=== PATIENT | male | born 1945 | race Caucasian/White ===

== ENCOUNTER 2016-08-03 06:47 | Inpatient (IN) | payer MEDICARE ==
--- NOTE | 2016-07-30 08:55 | PCM.ANEPRE ---
Anesthesia Pre-Op Review Reason for Review: FYI-HX 3 VESSEL CABG/AVR CONTINUES ON ASA & PLETAL Anesthesia Recommendations: Delay until Additional Data Obtain Additional Comments 71 yo M scheduled for R CEA with Dr. Husain for 80% stenosis. Significant cardiac history including CABG and AVR in 2008. Echo 12/06/2015 shows EF 60-65% with bioprosthetic aortic valve, mod to severe MR. Last seen by cardiology 04/23, at which time he was referred back to Dr. Husain regarding surgical consideration of carotid stenosis. Note at this time states "follow-up with cardiology clinic as need AND make an appointment prior to surgery". Per cardiology, patient needs to have follow-up appointment prior to surgery, will discuss with pre-op if this can be expedited given that surgery is currently scheduled for 08/03/2016. Chart Reviewed by: MD Jyothi Santa Jeffrey L MD Jul 30, 2016 08:55
[~2016-08-03] VITALS: Ht 177.8 cm; Wt 82.2 kg
[2016-08-03] VITALS (18 sets, daily range): BP systolic 104–147; BP diastolic 58–82; PULSE 67–109; RESP 12–18; O2SAT 92–97
[~2016-08-03 06:47] MED LIST: ASPI-973 PO; CILO50TA PO; CeFAZolin 2 Gm/50 mL D5W IV Premix IV ONE; LIP40 PO; LISI-567 PO; Lactated Ringer's 1,000 ML IV ONE; METO25TA6 PO; MULT-1018 PO; RANI150T11 PO; UBID1CAP59 PO; VARE0.5T PO
--- NOTE | 2016-08-03 06:56 | PCM.HPANE ---
Patient Data Surgeon Admitting Provider: Attending Provider:Moreno Husain MD Primary Care Physician:Rl Other Provider:Brady Marrero Anesthesia Reason for Visit Right Carotid Stenosis Ht/WT & BMI Height (Feet): 5 Height (Inches): 10 Weight (Kilograms): 79.832 Body Mass Index 25.00 Allergies Uncoded Allergies: MONTOYA POD (Allergy, Unknown, UNKNOWN, 07/29/16) BEE STINGS (Allergy, Unknown, UNKNOWN, 07/29/16) Past Anesthesia History Anesthesia History: Denies:: Anesthesia Reactions, Malignant Hyperthermia Diabetes History Hx Diabetes?: No MRSA MRSA: No Medications Blood Thinner: Aspirin Hypertension Medication: Yes (LISINOPRIL) Home Meds Incl Beta Fran: Yes (METOPROLOL) Reported Medications Ranitidine (Zantac)150 Mg [id number] Mg PO DAILY 07/29/16 Multivitamin (Multi Vitamin Daily)1 Each Tablet1 Each PO DAILY 30 Days Ref 0 07/29/16 Metoprolol Tartrate 25 Mg Usrmje60 Mg PO BID 30 Days Ref 0 07/29/16 Lisinopril 20 Mg Dsezfh12 Mg PO DAILY 30 Days Ref 0 07/29/16 Ubidecarenone/Vitamin E Mixed (Ahm13-Qpd E 200 mg-20 Unit Sfg)200 Mg-20 Unit Capsule1 Each PO DAILY 07/29/16 Cilostazol 50 Mg Fpaiem57 Mg PO BID 07/29/16 Varenicline Tartrate (Chantix)0.5 Mg Tablet0.5-1 Mg PO DIRECTED PRN SMOKING 07/29/16 Atorvastatin (Lipitor)40 Mg Fggmtn20 Mg PO BID Ref 0 07/29/16 Aspirin 81 Mg Pqplbd44 Mg PO DAILY Ref 0 07/29/16 Discontinued Reported Medications No Historical Medication Ea Ref 0 11/10/08 History History of ENT Problems?: No HEENT History: Positive for:: Hearing Problem Denies:: Cataracts Sinus Problem Hx of Heart Problems?: Yes Cardiovascular History: Positive for:: Atrial Fibrillation (HX OF) Cardiac Surgery (S/P HEART CATH 11/2008;S/P 3 VESSEL CABG & AVR 12/2008) Chest Pain Coronary Artery Disease Heart Murmur (GR II/ HARSH DEYANIRA @ [facility] W/ RADIATION ECHO 11/2015 EF 60-65%) Hypertension (HYPERLIPIDEMIA) Irregular Heartbeat (HX A FIB) Peripheral Vascular (PAD-LE'S; CAROTID STENOSIS) Valvular Heart Disease (MOD-SEVERE MR S/P AVR (BIOPROSTHETIC)) Other Cardiac History: BILAT CAROTID STENOSIS (80% OCCL,USION ON RT; 50% ON LT )=CURRENT PROBLEM Hx of Respiratory Problem?: No Respiratory History: Denies:: Use of C-PAP Machine Hx Neurologic Problems?: No Neurological History: Denies:: Alzheimer's Disease CVA Dementia Dizziness Headaches Parkinson's Disease Seizures Hx of GI Problems?: Yes Gastrointestinal History: Positive for:: Gastroesphageal Reflux Hx of Problems?: No Genitourinary History: Denies:: HX of Hemodialysis Kidney Stones Urinary Tract Infection HX of Peritoneal Dialysis: No Male Hx: Denies:: Prostate Problems Scrotal Mass Testicular Surgery Skin History: Denies:: History Skin Disorders? Pressure Ulcers Hx Musculoskeletal Problems?: Yes Musculoskeletal History: Positive for:: Back Injury (crushed disk 1972) Musculoskeletal Trauma (S/P BILAT SHOULDER RPR'S, CTR) Denies:: Joint Replacement Hx of Psycho/Social Problems?: No Psycho Social History: Denies:: Anxiety Bipolar Disorder Hx Depression Suicide Attempt Hx Surgeries?: Yes (BILAT SHOULDER RPR'S, CTR) Hx Any Other Health Problems?: Yes Other History: Positive for:: Hospitalization Denies:: Cancer Endocrine Disease Thyroid Disease History Blood Transfusions: Positive for:: Blood Transfusions Denies:: Blood Transfuse Reaction Hx Diabetes: No Hx Alcohol Use: YesAlcoholic Drinks Per Day: 3-6 BEERS/DAY (INCREASED STOPPED SMOKINGHx Substance Use: NoHave You Smoked inLast 12 mo: Yes (OCC E- CIG (RARE))Approx How Many Cigarettes/day: 40YR HX Stop/Bang S-Snoring: Do You Snore Loudly: No T-Tired: feel tired, fatigued: No O-Obsered: Observed not breath: No P-Blood Pressure: treated: Yes B- Body Mass Index > 35 kg/m2: No A- Age over 50: Yes N- Neck Large Circumference: No G- Gender Male: Yes SERENITY Total Score: 3 Risk Assessment Category Category 1A: Patient has history of documented sleep apnea, and HAS NOT received any narcotic, sedative or anesthesia administration during this stay. Category 1B: Patient has history of documented sleep apnea, and HAS received any narcotic , sedative or anesthesia administration during this stay Category 2: Patient has SUSPECTED Obstructive Sleep Apnea, and HAS received any narcotic , sedative or anesthesia administration during this stay. Category 3: Patient has SUSPECTED Obstructive Sleep Apnea and HAS NOT received narcotic, sedative or anesthesia administration during this stay. Category 4: Outpatient in Procedural Areas with known sleep apnea or who screen positive for High Risk via the STOP/BANG questionnaire. Exam Exam General Appearance: Alert, Oriented X3, Cooperative HEENT/AIRWAY: MP 2, Neck Movement (50% expectred ROM), Mouth Opening (wnl) Lungs: Clear to Auscultation Heart: Other (Prothetic AV, severe MR EF 65%) Plan Impression Patient chart reviewed, patient interviewed and anesthestic plan with risks, benefits, and alternatives discussed, and informed consent obtained. ASA Physical Status: ASA3 Severe Disease Anesthetic Support Modalities: Arterial Line Anesthetic Plan: GA Bene/Risks/Altern/Consents: Yes HP Complete Prior to Induction: Yes Max Chávez MD Aug 03, 2016 06:56
[2016-08-03] MEDS ORDERED: Lactated Ringer's 1,000 ML IV ONE ×2 (08:00→11:47)
[2016-08-03] MEDS ORDERED: Bupivacaine-MPF 0.5% W/EPI 30 mL Inj INFILTRATE ONE (10:48)
[2016-08-03] MEDS ORDERED: Heparin 1,000 Unit/mL 10 mL Inj IRRIGATION ONE (11:05)
[2016-08-03] MEDS ORDERED: EPHEDrine/NS 5 mg/mL 5 mL Syringe ONE (11:37)
[2016-08-03] MEDS ORDERED: Neostigmine 1 mg/mL 5 mL Inj ONE (11:37)
[2016-08-03] MEDS ORDERED: Dexamethasone 4 mg/mL Inj ONE (11:37)
[2016-08-03] MEDS ORDERED: Ondansetron 2 mg/mL 2 mL Inj ONE (11:37)
[2016-08-03] MEDS ORDERED: Propofol 10,000 mCg/mL 20 mL Inj ONE (11:37)
[2016-08-03] MEDS ORDERED: Glycopyrrolate 0.2 mg/mL 5 mL Inj ONE (11:37)
[2016-08-03] MEDS ORDERED: Ondansetron 2 mg/mL 2 mL Inj IVPUSH PRN ×2 (13:05→14:00)
[2016-08-03] MEDS ORDERED: HYDROcodone-APAP 5-325 mg Tablet PO PRN (13:05)
[2016-08-03] MEDS ORDERED: EPHEDrine Sulfate 50 mg/mL Inj IVPUSH PRN (14:00)
[2016-08-03] MEDS ORDERED: Lactated Ringer's 500 ML IV PRN (14:00)
[2016-08-03] MEDS ORDERED: hydrALAZINE 20 mg/mL Inj IVPUSH PRN (14:00)
[2016-08-03] MEDS ORDERED: Atropine 0.4 mg/mL Inj IVPUSH PRN (14:00)
[2016-08-03] MEDS ORDERED: HYDROmorphone 1 mg/mL Inj IVPUSH PRN (14:00)
[2016-08-03] MEDS ORDERED: Phenylephrine 10,000 mCg/mL Inj IVPUSH PRN (14:00)
[2016-08-03] MEDS ORDERED: hydrOXYzine Inj 25 MG/1 mL SDV IM PRN (14:00)
[2016-08-03] MEDS ORDERED: EPHEDrine Sulfate 50 mg/mL Inj IM PRN (14:00)
[2016-08-03] MEDS ORDERED: Labetalol 5 mg/mL 4 mL Inj IV PRN (14:00)
[2016-08-03] MEDS ORDERED: Dexamethasone 4 mg/mL Inj IVPUSH PRN (14:00)
[2016-08-03] MEDS ORDERED: fentaNYL-PF 50 mCg/mL 2 mL Inj IVPUSH PRN (14:00)
[2016-08-03] MEDS ORDERED: Lactated Ringer's 1,000 ML IV SCH (14:00)
--- NOTE | 2016-08-03 14:17 | PCM.ANEP1 ---
Post Anesthesia Phase 1 PACU Phase 1 Assessment Vital Signs Vital Signs Date Time Temp Pulse Resp B/P Pulse Ox O2 Delivery O2 Flow Rate FiO2 08/03/16 14:00 88 13 106/62 92 Nasal Cannula 2 08/03/16 13:50 91 12 114/66 94 Nasal Cannula 2 08/03/16 13:40 37.1 93 12 104/58 95 Nasal Cannula 2 08/03/16 13:30 96 12 115/65 94 Nasal Cannula 2 08/03/16 13:25 102 15 124/65 93 Nasal Cannula 2 08/03/16 13:20 96 14 117/67 92 Room Air 08/03/16 13:15 107 14 123/67 92 Simple Mask 8 08/03/16 13:12 36.3 109 13 128/74 97 Simple Mask 8 08/03/16 08:53 36.3 67 17 137/78 97 Room Air Anesthetic Administered: GA Level of Alertness: Awake, talking MCGOVERN's with Equal Strength: Yes Pain: No Nausea or Vomiting: No Oxygen Delivery: Room Air Lungs: Normal Air Movement Max Chávez MD Aug 03, 2016 14:17
[2016-08-03] MEDS: Dextrose 5% Lactated Ringer's 1,000 ML IV SCH ×2 (15:27→23:02)
[2016-08-03] MEDS ORDERED: fentaNYL-PF 50 mCg/mL 2 mL Inj ONE (15:29)
--- NOTE | 2016-08-03 16:12 | NUR ---
PostOp Pt admitted to OSC unit from PACU at 1515. Arrived via gurney and and SHANK CEMENTER HAND/Tech assisted pt with transfer over to bed. On this RN arrival, pt settled in bed and noted to have golf ball swelling to right carotid incision; glue dressing to site with minimal oozing and bottom of incision site. A&OX3 - making FROILAN rosas, VSS - on 4L NC, IV patent and infusing, SCDs on, Call light in reach, Family at bedside, No complaints of pain other than feeling hungry. While charting physical assessment, noted that increased swelling to site. grants administrator made aware and call up to OR and requested that LABORATORY SUPERVISOR Sam come down to see pt and compare to when he was in PACU. Call to Dr. Husain post being seen by LABORATORY SUPERVISOR. Pt head elevated to 45 degrees and pressure applied, effective. Dr. Husain seen by pt and pressure dressing applied - will come see pt again prior to evening. Care continues. Call light in reach.
[2016-08-03 18:47] LABS: APPEARANCE,URINE CLEAR (CLEAR,HAZY); COLOR,URINE YELLOW (YELLOW); OCCULT BLOOD,URINE NEGATIVE (NEGATIVE); PH,URINE 5.5 (5.0-8.0); UROBILINOGEN,URINE NORMAL (NORMAL)
--- NOTE | 2016-08-03 22:29 | OP ---
[address] [address] OPERATIVE REPORT PATIENT: FREIDA LLANOS : 1945 MR#: [id number] ADMIT: 08/03/2016 JOB ID: [id number] DATE OF SURGERY: 08/03/2016 PREOPERATIVE DIAGNOSIS(ES): Severe asymptomatic right internal carotid stenosis. POSTOPERATIVE DIAGNOSIS(ES): Severe asymptomatic right internal carotid stenosis. PROCEDURE: Right carotid endarterectomy with shunt and PTFE patch. SURGEON: Moreno Husain MD. PORCELAIN TURNER: Sylvie Harper PA-C. INDICATIONS: A 71-year-old man who has a progressive severe asymptomatic right carotid stenosis. He also has a history of coronary artery disease and bioprosthetic aortic valve replacement. He has a progressive asymptomatic right internal carotid stenosis and after discussing options with the patient as well as having him cleared for his operation from a cardiac perspective by Dr. Earnest Melgar and Cesar Reddy PA-C, it was elected to proceed with his right carotid endarterectomy. FINDINGS: He had a severe proximal right internal carotid stenosis. He had pulsatile backflow from the internal carotid and normal antegrade flow from the common carotid. No abnormal adenopathy. DESCRIPTION OF PROCEDURE: At the beginning and end of the operation, the SCOAP checklist was completed. A general endotracheal anesthetic was induced. His neck was extended, rotated to the left and using ChloraPrep, prepped and draped in usual fashion. Essential imaging was up in the operating room. His right neck incision was designed and infiltrated with 0.5% bupivacaine with epinephrine. After making the incision, cautery was used to divide the platysma and subcutaneous tissues. Dissection was carried down medial to the right sternocleidomastoid muscle. The omohyoid was identified. Dissection then extended proximally, identifying the common carotid artery. A large venous branch in the lower neck was suture-ligated with 3-0 silk and divided. The common facial vein was identified and controlled with mosquito hemostats, sharply divided and then suture ligated with 3-0 silk suture horizontal mattresses sutures. The superior thyroid artery was identified, controlled with a vessel loop. The 12th cranial nerve was identified and protected. The small venous branches between the 12th cranial nerve and extending laterally were exposed with sharp dissection and divided between clips. The carotid bifurcation was then exposed and the external carotid exposed and controlled with a vessel loop and the common carotid controlled with a vessel loop. The distal internal carotid dissection was then completed and dissection went beyond the plaque to where the artery was soft. He was heparinized with 6400 units of intravenous heparin. After 5 minutes, he was occluded 1st distally, then proximally. An arteriotomy was made on the common carotid and then extended through the plaque onto the internal carotid. A Lo shunt was placed 1st distally and then proximally with the results as stated above. The endarterectomy was performed and there was an excellent tapering of the distal plaque. The distal intima was needed to be tacked in the posterior midline of the artery with a vertical mattress suture of 7-0 Prolene. The arteriotomy was then closed with a PTFE patch with running 6-0 PTFE suture. Prior to completing the suture line of the patch, the arteriotomy was flushed with heparinized saline and the shunt was removed. After tying off the suture, the artery was first backflushed from the internal and then forward flushed from the common carotid into the external carotid and then ultimately forward flow towards the brain. There were three spots on the suture line that needed interrupted PTFE sutures placed. After each were placed with the artery occluded and then the same process of back flushing and forward flushing was done after each suture. After completing the sutures, there was no bleeding from the anastomosis. The anastomosis was covered with FloSeal. There was no obvious bleeding from the wound. The platysma was closed with running 3-0 Vicryl. The skin with running subcuticular 4-0 Monocryl. Dermabond was placed over the incision. Estimated blood loss 30 cc. There were no apparent complications. There were no obvious cardiac complications. The final sponge, needle and instrument counts were announced as correct, and he was returned to recovery in stable condition with the final sponge, needle and instrument counts announced as correct. Critical assistance was provided by Sylvie Harper PA-C without whose help the operation could not have been completed. ABRAHAM
[2016-08-04 02:02] VITALS: BP 142/84; PULSE 90; RESP 20
[2016-08-04 06:39] VITALS: BP 166/85; PULSE 99; RESP 18
--- NOTE | 2016-08-04 06:44 | NUR ---
Pressure dressing Pressure dressing changed 4 times this shift. No longer showing signs of drainage from incision site. Patient's neck area on right side continued to swell more this evening. Ice and pressure were applied intermittently. Patient on room air 97%. Patient very talkative and up beat. No complaints of pain until this morning. Patient was given 1 Parthenon which brought his pain from a 6/10 to a 3/10. Patient A&Ox3. Tolerating full liquid well.
--- NOTE | 2016-08-04 07:33 | PCM.ANEP2 ---
Post Anesthesia Evaluation ASA/CMS Post Anesthesia VS in Patient's Normal Range?: Yes Resp Stable; Airway Patent?: Yes CV Function & Hydration Stable: Yes Mental Status Recovered?: Yes Pain control Satisfactory?: Yes N/V Control Satisfactory?: Yes Max Chávez MD Aug 04, 2016 07:33
[2016-08-04] MEDS: Dextrose 5% Lactated Ringer's 1,000 ML IV SCH (08:34)
--- NOTE | 2016-08-04 08:58 | PCM.DISURG ---
Surgical Discharge Instruction Date of Service Aug 04, 2016 Dates of Hospitalization Date of Hospital Admission Aug 03, 2016 at 15:28 Providers Admitting Physician: Moreno Husain MD Primary Care Physician: Nopcp Attending Physician: oMreno Husain MD Diet Discharge Diet: No restrictions Activity Discharge Activity-General: Ice incision 3-5 time/day for 20min, Activity as pain allows, May drive in (one week) Dressing and Incisional Care Hygiene: May shower Follow Up Plan Follow-up Provider (F9): Moreno Husain MD Follow-up appointment: Days (7-14) Moreno Husain MD Aug 04, 2016 08:58
[2016-08-04 09:07] VITALS: BP 162/99; PULSE 108; O2SAT 94
--- NOTE | 2016-08-04 09:28 | DIS ---
[address] [address] DISCHARGE SUMMARY PATIENT: FREIDA LLANOS : 1945 MR#: [id number] ADMIT: 08/03/2016 JOB ID: [id number] DIS: 08/04/2016 DISCHARGE DIAGNOSES: 1. Severe asymptomatic right internal carotid stenosis. 2. Coronary artery disease. 3. History of aortic valve replacement. 4. Tobacco addiction. OPERATION: Right carotid endarterectomy with shunt and patch. INDICATION: A 71-year-old man with a progressive asymptomatic right internal carotid stenosis. After demonstrating progression of the severity of his right internal carotid stenosis, and after he was seen preoperatively by Dr. Earnest Melgar, it was elected to proceed with a right carotid endarterectomy. HOSPITAL COURSE: On the day of the admission, his operation was performed. See operative report for details. He had no postoperative complications. He did develop a moderate right neck hematoma and swelling that was asymptomatic without impacting swallowing or breathing or speech. It was stable overnight and in fact is best described as a typical amount of neck swelling. A postoperative PTT was drawn and was normal. Neurologically he was normal. His 12th cranial nerve and marginal mandibular branch of the facial nerve were also normal. On the day after his operation, he was awake, alert, having minimal pain, and as stated above, no swallowing issues and no respiratory or speech issues. PHYSICAL EXAMINATION: Temperature 36.2, brachial blood pressure 166/85, pulse 99, respiratory rate 18. Neck: Moderate amount of swelling which was soft and without tracheal deviation. Incision healing well. Neurologic examination entirely normal. IMPRESSION: Doing well and there are no restrictions to discharge today. DISPOSITION: He is discharged to home. He is instructed not to drive for a week. He is discharged on all his usual medications includin. Chantix 0.5-1 mg p.o. p.r.n. smoking. 2. Cilostazol 50 mg p.o. b.i.d. 3. Lipitor 40 mg p.o. b.i.d. 4. Lisinopril 20 mg daily. 5. Metoprolol 25 mg p.o. b.i.d. 6. Aspirin 81 mg p.o. daily. 7. Ranitidine 150 mg p.o. daily. 8. Multivitamins. 9. Hydrocodone/APAP 5/325 mg 1-2 every four p.r.n. pain and he was given He is given a follow up appointment to see me in 7-14 days. MTDD
--- NOTE | 2016-08-04 11:38 | NUR ---
DISCHARGE Patient is alert and oriented X 4. Patient denies pain. Diet was advanced to a general diet. Tolerating liquids PO and his diet well. Denies nausea. No emesis noted. Denies SOB. No swallowing difficulty noted. Incisional area is well approximated. No bleeding noted. Swelling is a little lesser per patient. Area is bruised. Dr. Husain is aware of the swelling and bruising. Ambulated with SBA in the room and tolerated activity well. IV saline lock d/cd. Discharge instructions and care notes was given to the patient and he verbalized understanding. Discharged to home with his and all his personal belongings. (Copy of D/C is in the chart).
== END 2016-08-04 11:38 | disposition home or self-care (01) | DRG 39 ==
LOC: SAS 06:47 → OSC 15:28 → UNDOADMIN 15:30
PROVIDERS: ADMIT Surgery; ATTEND Surgery
PROC: 03UK0JZ Supplement Right Internal Carotid Artery with Synthetic Substitute, Open Approach (ICD-10-PCS; 2016-08-03)
PROC: 03CK0ZZ Extirpation of Matter from Right Internal Carotid Artery, Open Approach (ICD-10-PCS; principal; 2016-08-03 10:30)
DX: I65.21 Occlusion and stenosis of right carotid artery (principal); I25.10 Atherosclerotic heart disease of native coronary artery without angina pectoris; I10 Essential (primary) hypertension; F17.290 Nicotine dependence, other tobacco product, uncomplicated; Z95.1 Presence of aortocoronary bypass graft; Z95.2 Presence of prosthetic heart valve; Z90.5 Acquired absence of kidney